=== PATIENT | male | born 1975 | race Hispanic/Latino ===

== ENCOUNTER 2022-09-20 23:53 | Emergency (ER) | payer OTHER ==
[2022-09-21] MEDS ORDERED: Lidocaine 1% PF 5 ML VIAL ONE (00:15)
== END 2022-09-21 00:50 ==
LOC: ERS 23:53
DX: S06.0X0A Concussion without loss of consciousness, initial encounter (principal); S01.01XA Laceration without foreign body of scalp, initial encounter; I10 Essential (primary) hypertension; F17.210 Nicotine dependence, cigarettes, uncomplicated; Y04.2XXA Assault by strike against or bumped into by another person, initial encounter
CPT/HCPCS: 12001